=== PATIENT | male | born 1975 | race Caucasian/White ===

== ENCOUNTER 2017-06-06 14:09 | Emergency (ER) | payer OTHER ==
[~2017-06-06] VITALS: Ht 180.3 cm; Wt 104.0 kg
[2017-06-06] MEDS ORDERED: PREDNISONE50 MG PO (15:45)
[2017-06-06] MEDS ORDERED: LORTAB 5/3255 MG PO (15:45)
[2017-06-06] MEDS ORDERED: FLEXERIL PO (15:45)
[2017-06-06 16:11] VITALS: BP 151/91
== END 2017-06-06 16:12 | disposition home or self-care (01) | DRG 552 ==
LOC: ED 14:09
DX: M54.17 Radiculopathy, lumbosacral region (principal)

== ENCOUNTER 2017-11-19 05:38 | Emergency (ER) | payer BC ==
[~2017-11-19] VITALS: Ht 180.3 cm; Wt 103.6 kg
[~2017-11-19 05:38] MED LIST: FLEXERIL PO; LORTAB 5/3255 MG PO; PREDNISONE50 MG PO
[2017-11-19 06:36] LABS: HEMATOCRIT 51.5 % (39.0-50.0); IMMATURE GRANULOCYTES 0.3 % (0.0-1.0); MEAN CELL VOLUME 89.6 fL CALC (80.0-100.0); MEAN CORPUSCULAR HGB 29.6 pG CALC (26.0-32.0); NEUT# 9.49 thou/uL (1.82-7.42); RED BLOOD COUNT 5.75 mill/uL (4.70-6.10); RED CELL DISTRI WIDTH 12.8 % (11.5-15.5)
[2017-11-19 06:37] LABS: URINE BILIRUBIN - DIPSTICK NEGATIVE (NEGATIVE); URINE BLOOD DIPSTICK NEGATIVE (NEGATIVE); URINE COLOR YELLOW; URINE GLUCOSE - DIPSTICK NEGATIVE (NEGATIVE); URINE KETONE NEGATIVE (NEGATIVE); URINE LEUK ESTERASE NEGATIVE (NEGATIVE); URINE NITRITE - DIPSTICK NEGATIVE (Negative); URINE PH 5.5 (4.5-8.0); URINE PROTEIN - DIPSTICK NEGATIVE (NEG-TRACE); URINE SPECIFIC GRAVITY 1.015; URINE UROBILINOGEN - DIPSTICK 0.2 E.U./dL (0.2)
[2017-11-19 06:38] LABS: URINE CLARITY CLEAR
[2017-11-19 06:51] LABS: ALBUMIN 4.6 g/dL (3.2-5.0); ALKALINE PHOSPHATASE 71 u/l (38-126); AMYLASE 63 u/l (30-110); ANION GAP 22 (6-22 (CALC)); BILIRUBIN, TOTAL 0.3 mg/dL (0.0-1.4); BUN 8 mg/dL (9-20); BUN/CREATININE RATIO 10 (12-20 (CALC)); CARBON DIOXIDE 23 mmol/l (22-30); CHLORIDE 102 mmol/l (95-108); CREATININE 0.8 mg/dL (0.7-1.3); GFR > 60 ML/MIN (>=60 (CALC)); GFR FOR AFR.AMER. > 60 ML/MIN (>=60 (CALC)); LIPASE 518 u/l (23-300); POTASSIUM 3.7 mmol/l (3.5-5.1); SGOT/AST 37 u/l (17-59); SGPT/ALT 51 u/l (21-72); SODIUM 143 mmol/l (137-146)
[2017-11-19] MEDS ORDERED: METRONIDAZOL500 MG PO (07:58)
[2017-11-19] MEDS ORDERED: HYDROCO/APAP1 TA9 PO (07:58)
[2017-11-19] MEDS ORDERED: ONDANSETRON4 MG PO (07:58)
[2017-11-19] MEDS ORDERED: CIPRO XR500 MG PO (07:58)
[2017-11-19 10:15] VITALS: BP 143/84
== END 2017-11-19 10:15 | disposition home or self-care (01) | DRG 392 ==
LOC: ED 05:38
PROVIDERS: Emergency Medicine
DX: K52.9 Noninfective gastroenteritis and colitis, unspecified (principal); R10.31 Right lower quadrant pain; R10.32 Left lower quadrant pain; R11.2 Nausea with vomiting, unspecified
CPT/HCPCS: Q9967